=== PATIENT | female | born 2000 | race Hispanic/Latino ===

== ENCOUNTER 2021-01-01 09:09 | Emergency (ER) | payer OTHER ==
[~2021-01-01] VITALS: Ht 165.1 cm; Wt 79.0 kg
[2021-01-01 09:10] VITALS: BP 113/61
[2021-01-01] MEDS ORDERED: OXCA150T21 PO (09:52)
[2021-01-01] MEDS ORDERED: TRAZ-252 PO (09:52)
[2021-01-01] MEDS ORDERED: NEOSPORIN OINT 0.9 GM PKT TOP ONE (11:30)
[2021-01-01] MEDS ORDERED: LIDOCAINE 1% MDV 20ML VIAL SC ONE (11:30)
[2021-01-01] MEDS ORDERED: LR 1,000 ML IV SCH (11:35)
[2021-01-01] MEDS ORDERED: PERCOCET 5MG/325MG TAB PO PRN (11:35)
[2021-01-01] MEDS ORDERED: fentaNYL 100 MCG/2 ML INJECTION (J3010) IV PRN (11:35)
[2021-01-01] MEDS ORDERED: METOCLOPRAMIDE INJ 10MG/2ML VIAL (J2765 PER 1) IV PRN (11:35)
[2021-01-01] MEDS ORDERED: ONDANSETRON 4MG/2ML VIAL IV PRN (11:35)
== END 2021-01-01 13:00 | disposition home or self-care (01) ==
LOC: M ED 09:09
DX: S61.212A Laceration without foreign body of right middle finger without damage to nail, initial encounter (principal); W25.XXXA Contact with sharp glass, initial encounter; Y92.009 Unspecified place in unspecified non-institutional (private) residence as the place of occurrence of the external cause; Y93.9 Activity, unspecified; Y99.9 Unspecified external cause status

== ENCOUNTER 2021-07-28 23:11 | Emergency (ER) | payer OTHER ==
[~2021-07-28] VITALS: Ht 165.1 cm; Wt 77.3 kg
[~2021-07-28 23:11] MED LIST: OXCA150T21 PO; TRAZ-252 PO
[2021-07-29 04:52] VITALS: BP 133/73
== END 2021-07-29 07:47 | disposition home or self-care (01) ==
LOC: M ED 23:11
DX: R45.851 Suicidal ideations (principal); K21.9 Gastro-esophageal reflux disease without esophagitis; Z79.899 Other long term (current) drug therapy